=== PATIENT | female | born 1965 | race Caucasian/White ===

== ENCOUNTER 2016-07-20 11:56 | Emergency (ER) | payer OTHER ==
--- NOTE | 2016-07-20 14:42 | ED ORDER SUMMARY ---
..... Patient: GABE PEARSON OrderSheet [facility] VisitID: [id number] [address] [place] [address] 50y, F Registration Date/Time: 07/20/2016 ORDER SHEET Weight: 136.0 kg (stated) Allergies: Penicillin, OxyContin, Ibuprofen, morphine, Tetanus Toxoids GENERAL ORDERS: Rapid Influenza Screen (Nasal Pharyngeal) (nasal pharyngeal) Urgent (12:25 07/20/2016 MWinterer R.N. per protocol) (Ack 12:29 LNations ER Tech1) (12:31 MWinterer R.N.) Chest 2V Urgent (13:49 07/20/2016 Ilene HOWARD) (Ack 13:52 LNations ER Tech1) (14:14 MWinterer R.N.) MEDICATION ORDERS: Albuterol Neb Tx 2.5 mg (NOW) (13:50 07/20/2016 Ilene HOWARD) (Ack 14:03 MWinterer R.N.) (14:22 MWinterer R.N.) Prednisone PO 60 mg (NOW) (13:57 07/20/2016 Ilene HOWARD) (Ack 13:59 MWinterer R.N.) (14:03 MWinterer R.N.) IV FLUIDS: Solu-MEDROL IV 125 mg (NOW) (13:50 07/20/2016 Ilene HOWARD) (Ack 13:56 MWinterer R.N.) (Cancelled: Other13:57 Ilene HOWARD) ORDER SHEET NOTES: [Electronically signed by Naila Mariee R.N. (22:34 07/20/2016)] [Electronically signed by Norma Juares MD (13:38 07/22/2016)] [Electronically locked/signed by Naila Mariee R.N. (22:34 07/20/2016)]
--- NOTE | 2016-07-20 14:42 | ED NURSING NOTES ---
Clinical Report - Nurses [facility] [address] [place] [address] 07/20/2016 11:59 Patient: HERMILA PEARSON TRIAGE Acuity: LEVEL 3. Chief Complaint: COUGH and SORE THROAT and (SOB). Alert. No acute distress. SEPSIS SCREEN: Sepsis Screen. Negative (no infection suspected/documented). --12:22 Naila Mariee R.N. 12:16 07/20/16. BP: 139/71. HR: 94. RR: 20. O2 saturation: 97% on room air. Temp: 98.8 F (oral). --12:22 Naila Mariee R.N. Weight: 136 kg stated. Height/Length: 66 inches Per Patient. BMI: 48.4. --12:17 Naila Mariee R.N. Medications Flonase Nasal. --12:19 Naila Mariee R.N. Medication/allergy information source: the patient. --12:22 Naila Mariee R.N. Allergies Penicillin. --12:19 Naila Mariee R.N. OxyContin. --12:19 Naila Mariee R.N. Ibuprofen. --12:19 Naila Mariee R.N. morphine. --12:20 Naila Mariee R.N. Tetanus Toxoids. --12:20 Naila Mariee R.N. History Arrived by private vehicle. Historian: patient. Accompanied by spouse. Onset. (3 days ago). She has had chest congestion. 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 PAST MEDICAL HX: The patient has had a hysterectomy. SOCIAL HX: Current every day heavy tobacco smoker- 1 pack per day. No alcohol use or drug use. FALL RISK ASSESSMENT: Fall risk assessment completed. No fall risk identified. NUTRITIONAL RISK ASSESSMENT: The nutritional risk assessment revealed no deficiencies. FUNCTIONAL ASSESSMENT: Functional assessment: no impairments noted. LEARNING NEEDS ASSESSMENT: The learning needs assessment revealed no barriers. SKIN INTEGRITY ASSESSMENT: Skin integrity risk assessment completed. No skin integrity risk identified. --12: Naila Mariee R.N. ADDITIONAL SURGERIES: Bladder Suspension. Hysterectomy. Knee Surgery. --12: Naila Mariee R.N. Assessment GENERAL / NEURO / PSYCH: Alert. Oriented X 4. Appears in no acute distress. Marguerite Coma Scale: 15- eyes open spontaneously (4); best verbal response- oriented x 4 (5); best motor response- obeys commands (6). Patient appears calm and cooperative. RESPIRATORY: Respirations not labored. CVS: Capillary refill less than 2 seconds. GI / : Abdomen soft and nontender. SKIN: Mucous membranes are pink. Skin is warm and dry. --12: Naila Mariee R.N. Interventions ID band on patient. To treatment room. --12: Naila Mariee R.N. PHYSICAL ASSESSMENT 12:07/20/16. Ambulatory to room. GENERAL / NEURO / PSYCH: Alert. Oriented X 4. Appears in no acute distress. HEENT: Pupils equal, round and reactive to light. Runny nose. Hoarse voice. Mucous membranes are pink. RESPIRATORY: Nonproductive cough. CVS: Capillary refill less than 2 seconds. SKIN: Skin is warm and dry. Normal skin turgor. --12: Naila Mariee R.N. NURSING PROGRESS NOTES 12:07/20/16. Patient gowned. Reassurance given. Two patient identifiers checked. Call light placed in reach. Side rails up x 1. Bed placed in lowest position. Brakes of bed on. Patient ready for evaluation- chart flagged and ED physician notified. --12: Naila Mariee R.N. 12:07/20/16. Checked patient name and birthdate: patient confirmed. Flu swab obtained by RN via nasal swab. Labeled in the presence of the patient and sent to lab. --12: Naila Mariee R.N. 14:07/20/2016 Prednisone PO 60 mg given. Allergies verified and confirmed 5 rights. --14: Naila Mariee R.N. 14:07/20/16. BP: 142/59. HR: 88. RR: 20. O2 saturation: 92% on room air. --14: Naila Mariee R.N. 14:22 07/20/2016 Albuterol Neb TX 2.5 mg given. Given by the respiratory therapist. Allergies verified and confirmed 5 rights. --14:22 Naila Mariee R.N. DISPOSITION / DISCHARGE 22:12 07/20/16. ( Called in prescription to [facility] (Levaquin 500 mg PO daily x 5 day #5) per Norma Juares for pneumonia. Hermila verbalizes indications and importance of finishing all prescribed antibiotics. She has no questions and voices no concerns at this time.). --22:12 Nick Alcaraz R.N. Departure time: 14:50 Jul 20 2016. Condition at departure: improved and stable. No learning barriers present. Discharge instructions provided and reviewed with the patient. Reviewed medication(s) side effects, precautions, dosing and course information. Prescription(s) given to the patient. Patient verbalized understanding. Written instructions provided in [place]. The patient was discharged by the physician. She was discharged home and accompanied by spouse. She left the Emergency Department ambulatory and via private vehicle. Spouse driving. --22:34 Naila Mariee R.N. 22:32 07/20/16. BP: 142/59. HR: 90. RR: 20. O2 saturation: 95% on room air. Temp: 98.8 F (oral). Pain level now: 510. --22:34 Naila Mariee R.N. Locked/Released at 07/20/2016 22:34 by Naila Mariee R.N.
--- NOTE | 2016-07-20 14:42 | ED CLINICAL REPORT ---
Clinical Report - Physicians/Mid Levels [facility] [address] [place] [address] 07/20/2016 11:59 Patient: GABE PEARSON Time Seen: 12:42. Arrived- By private vehicle. Historian- patient. HISTORY OF PRESENT ILLNESS Chief Complaint: COUGH and SORE THROAT. This started about 3 days ago and is still present. The illness is described as moderate. The patient has had a cough, mild difficulty breathing, a sore throat, nasal congestion and chills. She has had muscle aches. She has had scant amounts of thick, white sputum. No chest discomfort or pain, fever, hoarseness or sinus pressure. No sinus drainage or ear pain. Additional history - The patient has had contact with a sick individual. Similar symptoms previously: Occasionally. Recent medical care: Not recently seen/assessed. REVIEW OF SYSTEMS No headache, eye discomfort, nausea, vomiting or diarrhea. No abdominal pain, hay fever, pedal edema, calf pain or difficulty with urination. No skin rash, enlarged lymph nodes or joint pain. All systems otherwise negative, except as recorded above. PAST HISTORY Problems: no known problems. Additional Surgeries: Bladder Suspension. Hysterectomy. Knee Surgery. Medications: Flonase Nasal. Allergies: Ibuprofen. morphine. OxyContin. Penicillin. Tetanus Toxoids. SOCIAL HISTORY Smoker- current status unknown. No alcohol use or drug use. ADDITIONAL NOTES The nursing notes have been reviewed. PHYSICAL EXAM Vital Signs: 07/20/2016 12:16 BP: 139/71. HR: 94. RR: 20. O2 saturation: 97%. Temp: 98.8 F. Appearance: Alert. No acute distress. Eyes: Pupils equal, round and reactive to light. Eyes normal inspection. ENT: Nose normal. Neck: Normal inspection. Neck supple. CVS: Normal heart rate and rhythm. Heart sounds normal. Pulses normal. Respiratory: No respiratory distress. Expiratory mild bilateral wheezes diffusely. No accessory muscle use or decreased breath sounds. Abdomen: Soft and nontender. Back: Normal inspection. No CVA tenderness. Skin: Skin warm and dry. Normal skin color. No rash. Normal skin turgor. Extremities: Extremities exhibit normal ROM. No lower extremity edema. Neuro: Oriented X 3. No motor deficit. No sensory deficit. LABS, X-RAYS, AND EKG Chest X-ray: No acute disease. Small infiltrate in the right lung base (possible). Normal lung markings present. Normal heart size. Mediastinum normal. Great vessels normal. Soft tissues normal. No fracture. No bony lesion present. Views: PA and lateral. Technique: good. The X-rays were independently viewed by me, interpreted by the radiologist and contemporaneously by me and discussed with the radiologist. Prior films were not available for comparison. Laboratory Tests: Rapid Influenza Screen: (DYLAN: 07/20/2016 12:25) ( MsgRcvd 07/20/2016 12:45) Final results SPECIMEN DESCRIPTION: NASAL PHARYNGEAL Test Result Flag Units (Reference) RAPID INFLUENZA SCREEN DATE: 07/20/16 INFLUENZA A: NEGATIVE SCREEN FOR INFLUENZA A INFLUENZA B: NEGATIVE SCREEN FOR INFLUENZA B . Pulse Oximetry: 07/20/2016 12:16 O2 saturation: 97%. (FIO2 - room air). Interpretation: normal. PROGRESS AND PROCEDURES Course of Care: Pt was worked up with a CXR and influenza test, and given a duoneb and prednisone. Influenza was negative, and I felt the CXR was also negative. However, the radiologist did call me after pt had been discharged, and stated there may be a tiny RLL infiltrate. I did prepare a prescription for abx, and have nursing staff call the pt at home to let her know. Patient counseled in person regarding the patient's stable condition, test results, diagnosis and need for follow-up. Concerns were addressed. Old medical records reviewed. Disposition: Discharged. Condition: stable. CLINICAL IMPRESSION Acute bronchospasm (mild). Substance dependence problems: dependence on nicotine. Acute viral (presumed) upper respiratory infection. INSTRUCTIONS Drink plenty of fluids. Do not smoke. Seek medical help to quit smoking. (Your influenza test and chest x-ray were negative. Please take the steroids and inhaler as directed, until you are feeling better.). Warnings: GENERAL WARNINGS: Return or contact your physician immediately if your condition worsens or changes unexpectedly, if not improving as expected, or if other problems arise. Your Current Medications: CONTINUE TAKING THE FOLLOWING MEDICATIONS: Flonase Nasal. Prescription Medications: Albuterol HFA oral inhaler: inhale 2 puffs every 4 hours as needed for wheezing, difficulty breathing or shortness of breath. Dispense one (1) unit. No refill. Prednisone 20 mg: take 3 orally every day for 4 days. Dispense sufficient quantity. No refills. Follow-up: Follow up with your doctor in three days if not better. Understanding of the discharge instructions verbalized by patient. (Electronically signed by Norma Juares MD 07/22/2016 13:38)
--- NOTE | 2016-07-20 14:42 | ED ORDER SUMMARY ---
..... Patient: GABE PEARSON OrderSheet [facility] VisitID: [id number] [address] [place] [address] 50y, F Registration Date/Time: 07/20/2016 ORDER SHEET Weight: 136.0 kg (stated) Allergies: Penicillin, OxyContin, Ibuprofen, morphine, Tetanus Toxoids GENERAL ORDERS: Rapid Influenza Screen (Nasal Pharyngeal) (nasal pharyngeal) Urgent (12:25 07/20/2016 MWinterer R.N. per protocol) (Ack 12:29 LNations ER Tech1) (12:31 MWinterer R.N.) Chest 2V Urgent (13:49 07/20/2016 Ilene HOWARD) (Ack 13:52 LNations ER Tech1) (14:14 MWinterer R.N.) MEDICATION ORDERS: Albuterol Neb Tx 2.5 mg (NOW) (13:50 07/20/2016 Ilene HOWARD) (Ack 14:03 MWinterer R.N.) (14:22 MWinterer R.N.) Prednisone PO 60 mg (NOW) (13:57 07/20/2016 Ilene HOWARD) (Ack 13:59 MWinterer R.N.) (14:03 MWinterer R.N.) IV FLUIDS: Solu-MEDROL IV 125 mg (NOW) (13:50 07/20/2016 Ilene HOWARD) (Ack 13:56 MWinterer R.N.) (Cancelled: Other13:57 Ilene HOWARD) ORDER SHEET NOTES: [Electronically signed by Naila Mariee R.N. (22:34 07/20/2016)] [Electronically signed by Norma Juares MD (13:38 07/22/2016)] [Electronically locked/signed by Naila Mariee R.N. (22:34 07/20/2016)]
--- NOTE | 2016-07-20 17:22 | DIAGNOSTIC IMAGING REPORT ---
PROCEDURE: XR CHEST 2 VIEW INDICATION: SHORTNESS OF BREATH TECHNIQUE: PA and lateral views. COMPARISON: None. FINDINGS: Findings suggest mild parenchymal changes at the right lung base. Lungs are otherwise clear. Heart and mediastinum are normal. Thorax is normal. IMPRESSION: 1. Findings suggest mild parenchymal changes at the right lung base. Consider pneumonia (e.g., Mycoplasma, bacterial, aspiration). 2. Findings discussed with Dr. Norma Juares.
--- NOTE | 2016-07-22 13:38 | ED MED RECONCILIATION SUMMARY ---
Patient: GABE PEARSON Medication Reconciliation Report [facility] VisitID: [id number] [address] [place] [address] 50y, F Registration Date/Time: 07/20/2016 Weight: 136.0 kg Height/Length: 66 in. BMI: 48.4 ALLERGIES: Ibuprofen, morphine, OxyContin, Penicillin, Tetanus Toxoids The patient's Home Medications are listed below: CONTINUE TAKING THE FOLLOWING MEDICATIONS: Flonase Nasal The source(s) of the original Home Medication information: patient The following Medications were given to the patient in the Emergency Department: Prednisone [PO] PO 60 mg, administered: 07/20/2016 2:03:00 PM Albuterol [Neb Tx] Neb TX 2.5 mg, administered: 07/20/2016 2:22:00 PM The following Medications were prescribed to the patient: Albuterol HFA oral inhaler: inhale 2 puffs every 4 hours as needed for wheezing, difficulty breathing or shortness of breath. Dispense one (1) unit. No refill. -- Norma Juares MD Prednisone 20 mg: take 3 orally every day for 4 days. Dispense sufficient quantity. No refills. -- Norma Juares MD
--- NOTE | 2016-07-22 13:38 | ED MAR SUMMARY ---
..... Medication Administration Record [facility] [address] [place] [address] Patient: GABE PEARSON Visit ID: [id number] 50y, F Weight: 136.0 kg Height/Length: 66 in BMI: 48.4 ALLERGIES: Tetanus Toxoids, morphine, Ibuprofen, OxyContin, Penicillin Given 14:03 07/20/2016 Naila Mariee R.N. Medication Administered: PREDNISONE [PO], Dose: 60 mg PO. Medication Ordered: Prednisone PO 60 mg (NOW). Given 14:22 07/20/2016 Naila Mariee RNelson Medication Administered: ALBUTEROL [NEB TX], Dose: 2.5 mg Neb TX. Medication Ordered: Albuterol Neb Tx 2.5 mg (NOW).
--- NOTE | 2016-07-22 13:38 | ED DISCHARGE INSTRUCTIONS ---
Patient: GABE PEARSON General Instructions [facility] VisitID: [id number] [place] [address] 50y, F Registration Date/Time: 07/20/2016 Acute bronchospasm (mild). Substance dependence problems: dependence on nicotine. Acute viral (presumed) upper respiratory infection. INSTRUCTIONS Drink plenty of fluids. Do not smoke. Seek medical help to quit smoking. (Your influenza test and chest x-ray were negative. Please take the steroids and inhaler as directed, until you are feeling better.). Warnings: GENERAL WARNINGS: Return or contact your physician immediately if your condition worsens or changes unexpectedly, if not improving as expected, or if other problems arise. Your Current Medications: CONTINUE TAKING THE FOLLOWING MEDICATIONS: Flonase Nasal. Prescription Medications: Albuterol HFA oral inhaler: inhale 2 puffs every 4 hours as needed for wheezing, difficulty breathing or shortness of breath. Dispense one (1) unit. No refill. Prednisone 20 mg: take 3 orally every day for 4 days. Dispense sufficient quantity. No refills. Follow-up: Follow up with your doctor in three days if not better. Understanding of the discharge instructions verbalized by patient. ADDITIONAL INFORMATION Viral Respiratory Illness [Adult] You have an Upper Respiratory Illness (URI) caused by a virus. This illness is contagious during the first few days. It is spread through the air by coughing and sneezing or by direct contact (touching the sick person and then touching your own eyes, nose or mouth). Most viral illnesses go away within 7-10 days with rest and simple home remedies. Sometimes, the illness may last for several weeks. Antibiotics will not kill a virus and are generally not prescribed for this condition. Home Care: 1) If symptoms are severe, rest at home for the first 2-3 days. When you resume activity, don't let yourself get too tired. 2) Avoid being exposed to cigarette smoke (yours or others). 3) Tylenol (acetaminophen) or ibuprofen (Advil, Motrin) will help fever, muscle aching and headache. (Persons under 18 with fever should not take aspirin since this may cause liver damage.) 4) Your appetite may be poor, so a light diet is fine. Avoid dehydration by drinking 6-8 glasses of fluids per day (water, soft drinks, juices, tea, soup). Extra fluids will help loosen secretions in the nose and lungs. 5) Mlvi-iql-bcwfser cold medicines will not shorten the length of time youre sick, but they may be helpful for the following symptoms: cough (Robitussin DM); sore throat (Chloraseptic lozenges or spray); nasal and sinus congestion (Actifed, Sudafed, Chlortrimeton). Follow Up with your doctor or as advised if you dont improve over the next week. Get Prompt Medical Attention if any of the following occur: -- Cough with lots of colored sputum (mucus) or blood in your sputum -- Chest pain, shortness of breath, wheezing or have trouble breathing -- Severe headache; face, neck or ear pain -- Fever over 100.4 F (38.0 C) for more than three days -- You cant swallow due to throat pain How To Quit Smoking Smoking is one of the hardest habits to break. About half of all those who have ever smoked have been able to quit, and most of those (about 70%) who still smoke want to quit. Here are some of the best ways to stop smoking. Keep Trying: It takes most smokers about 8 tries before they are finally able to fully quit. So, the more often you try and fail, the better your chance of quitting the next time! So, don't give up! Go Cold [place]: Most ex-smokers quit cold turkey. Trying to cut back gradually doesn't seem to work as well, perhaps because it continues the smoking habit. Also, it is possible to fool yourself by inhaling more while smoking fewer cigarettes. This results in the same amount of nicotine in your body! Get Support: Support programs can make an important difference, especially for the heavy smoker. These groups offer lectures, methods to change your behavior and peer support. Call the free national Quitline for more information. 415-YYIU-VXZ (392-652-5467). Low-cost or free programs are offered by many hospitals, local chapters of the [employer] [employer] (897-551-9046) and the [employer] (199-858-7592). Support at home is important too. Non-smokers can help by offering praise and encouragement. If the smoker fails to quit, encourage them to try again! [place] Medicines: For those who can't quit on their own, Nicotine Replacement Therapy (NRT) may make quitting much easier. Certain aids such as the nicotine patch, gum and lozenge are available without a prescription. However, it is best to use these under the guidance of your doctor. The skin patch provides a steady supply of nicotine to the body. Nicotine gum and lozenge gives temporary bursts of low levels of nicotine. Both methods take the edge off the craving for cigarettes. WARNING: If you feel symptoms of nicotine overdose, such as nausea, vomiting, dizziness, weakness, or fast heartbeat, stop using these and see your doctor. Prescription Medicines: After evaluating your smoking patterns and prior attempts at quitting, your doctor may offer a prescription medicine such as bupropion (Zyban, Wellbutrin), varenicline (Chantix, Champix), a niocotine inhaler or nasal spray. Each has its unique advantage and side effects which your doctor can review with you. Health Benefits Of Quitting: The benefits of quitting start right away and keep improving the longer you go without smokin minutes: blood pressure and pulse return to normal 8 hours: oxygen levels return to normal 2 days: ability to smell and taste begins to improve as damaged nerves start to regrow 2-3 weeks: circulation and lung function improves 1-9 months: decreased cough, congestion and shortness of breath; less tired 1 year: risk of heart attack decreases by half 5 years: risk of lung cancer decreases by half; risk of stroke becomes the same as a non-smoker For information about how to quit smoking, visit the following links: National Cancer [place] , Clearing the Air, Quit Smoking Today - an online booklet. http://www.smokefree.gov/pubs/clearing_the_air.pdf Smokefree.gov http://smokefree.gov/ QuitNet http://www.quitnet.com/ You have been given the following additional information: Uri, Viral, No Abx (Adult) Smoking Cessation (Electronically signed by Norma Juares MD 07/22/2016 13:38)
--- NOTE | 2016-07-22 13:38 | ED MED RECONCILIATION SUMMARY ---
Patient: GABE PEARSON Medication Reconciliation Report VisitID: [id number] [address] [place] [address] 50y, F Registration Date/Time: 07/20/2016 Weight: 136.0 kg Height/Length: 66 in. BMI: 48.4 ALLERGIES: Ibuprofen, morphine, OxyContin, Penicillin, Tetanus Toxoids The patient's Home Medications are listed below: CONTINUE TAKING THE FOLLOWING MEDICATIONS: Flonase Nasal The source(s) of the original Home Medication information: patient The following Medications were given to the patient in the Emergency Department: Prednisone [PO] PO 60 mg, administered: 07/20/2016 2:03:00 PM Albuterol [Neb Tx] Neb TX 2.5 mg, administered: 07/20/2016 2:22:00 PM The following Medications were prescribed to the patient: Albuterol HFA oral inhaler: inhale 2 puffs every 4 hours as needed for wheezing, difficulty breathing or shortness of breath. Dispense one (1) unit. No refill. -- Norma Juares MD Prednisone 20 mg: take 3 orally every day for 4 days. Dispense sufficient quantity. No refills. -- Norma Juares MD
--- NOTE | 2016-07-22 13:38 | ED MAR SUMMARY ---
..... Medication Administration Record [facility] [address] [place] [address] Patient: GABE PEARSON Visit ID: [id number] 50y, F Weight: 136.0 kg Height/Length: 66 in BMI: 48.4 ALLERGIES: Tetanus Toxoids, morphine, Ibuprofen, OxyContin, Penicillin Given 14:03 07/20/2016 Naila Mariee R.N. Medication Administered: PREDNISONE [PO], Dose: 60 mg PO. Medication Ordered: Prednisone PO 60 mg (NOW). Given 14:22 07/20/2016 Naila Mariee RNelson Medication Administered: ALBUTEROL [NEB TX], Dose: 2.5 mg Neb TX. Medication Ordered: Albuterol Neb Tx 2.5 mg (NOW).
--- NOTE | 2016-07-22 13:38 | ED DISCHARGE INSTRUCTIONS ---
Patient: GABE PEARSON General Instructions [facility] VisitID: [id number] [place] [address] 50y, F Registration Date/Time: 07/20/2016 Acute bronchospasm (mild). Substance dependence problems: dependence on nicotine. Acute viral (presumed) upper respiratory infection. INSTRUCTIONS Drink plenty of fluids. Do not smoke. Seek medical help to quit smoking. (Your influenza test and chest x-ray were negative. Please take the steroids and inhaler as directed, until you are feeling better.). Warnings: GENERAL WARNINGS: Return or contact your physician immediately if your condition worsens or changes unexpectedly, if not improving as expected, or if other problems arise. Your Current Medications: CONTINUE TAKING THE FOLLOWING MEDICATIONS: Flonase Nasal. Prescription Medications: Albuterol HFA oral inhaler: inhale 2 puffs every 4 hours as needed for wheezing, difficulty breathing or shortness of breath. Dispense one (1) unit. No refill. Prednisone 20 mg: take 3 orally every day for 4 days. Dispense sufficient quantity. No refills. Follow-up: Follow up with your doctor in three days if not better. Understanding of the discharge instructions verbalized by patient. ADDITIONAL INFORMATION Viral Respiratory Illness [Adult] You have an Upper Respiratory Illness (URI) caused by a virus. This illness is contagious during the first few days. It is spread through the air by coughing and sneezing or by direct contact (touching the sick person and then touching your own eyes, nose or mouth). Most viral illnesses go away within 7-10 days with rest and simple home remedies. Sometimes, the illness may last for several weeks. Antibiotics will not kill a virus and are generally not prescribed for this condition. Home Care: 1) If symptoms are severe, rest at home for the first 2-3 days. When you resume activity, don't let yourself get too tired. 2) Avoid being exposed to cigarette smoke (yours or others). 3) Tylenol (acetaminophen) or ibuprofen (Advil, Motrin) will help fever, muscle aching and headache. (Persons under 18 with fever should not take aspirin since this may cause liver damage.) 4) Your appetite may be poor, so a light diet is fine. Avoid dehydration by drinking 6-8 glasses of fluids per day (water, soft drinks, juices, tea, soup). Extra fluids will help loosen secretions in the nose and lungs. 5) Pcno-veu-jiwtxeh cold medicines will not shorten the length of time youre sick, but they may be helpful for the following symptoms: cough (Robitussin DM); sore throat (Chloraseptic lozenges or spray); nasal and sinus congestion (Actifed, Sudafed, Chlortrimeton). Follow Up with your doctor or as advised if you dont improve over the next week. Get Prompt Medical Attention if any of the following occur: -- Cough with lots of colored sputum (mucus) or blood in your sputum -- Chest pain, shortness of breath, wheezing or have trouble breathing -- Severe headache; face, neck or ear pain -- Fever over 100.4 F (38.0 C) for more than three days -- You cant swallow due to throat pain How To Quit Smoking Smoking is one of the hardest habits to break. About half of all those who have ever smoked have been able to quit, and most of those (about 70%) who still smoke want to quit. Here are some of the best ways to stop smoking. Keep Trying: It takes most smokers about 8 tries before they are finally able to fully quit. So, the more often you try and fail, the better your chance of quitting the next time! So, don't give up! Go Cold [place]: Most ex-smokers quit cold turkey. Trying to cut back gradually doesn't seem to work as well, perhaps because it continues the smoking habit. Also, it is possible to fool yourself by inhaling more while smoking fewer cigarettes. This results in the same amount of nicotine in your body! Get Support: Support programs can make an important difference, especially for the heavy smoker. These groups offer lectures, methods to change your behavior and peer support. Call the free national Quitline for more information. 741-VBKC-QBD (239-723-4810). Low-cost or free programs are offered by many hospitals, local chapters of the [place] [employer] (505-793-2931) and the [employer] (996-857-2694). Support at home is important too. Non-smokers can help by offering praise and encouragement. If the smoker fails to quit, encourage them to try again! Wowb-Ulq-Qxnqoua Medicines: For those who can't quit on their own, Nicotine Replacement Therapy (NRT) may make quitting much easier. Certain aids such as the nicotine patch, gum and lozenge are available without a prescription. However, it is best to use these under the guidance of your doctor. The skin patch provides a steady supply of nicotine to the body. Nicotine gum and lozenge gives temporary bursts of low levels of nicotine. Both methods take the edge off the craving for cigarettes. WARNING: If you feel symptoms of nicotine overdose, such as nausea, vomiting, dizziness, weakness, or fast heartbeat, stop using these and see your doctor. Prescription Medicines: After evaluating your smoking patterns and prior attempts at quitting, your doctor may offer a prescription medicine such as bupropion (Zyban, Wellbutrin), varenicline (Chantix, Champix), a niocotine inhaler or nasal spray. Each has its unique advantage and side effects which your doctor can review with you. Health Benefits Of Quitting: The benefits of quitting start right away and keep improving the longer you go without smokin minutes: blood pressure and pulse return to normal 8 hours: oxygen levels return to normal 2 days: ability to smell and taste begins to improve as damaged nerves start to regrow 2-3 weeks: circulation and lung function improves 1-9 months: decreased cough, congestion and shortness of breath; less tired 1 year: risk of heart attack decreases by half 5 years: risk of lung cancer decreases by half; risk of stroke becomes the same as a non-smoker For information about how to quit smoking, visit the following links: [employer] [place] , Clearing the Air, Quit Smoking Today - an online booklet. http://www.smokefree.gov/pubs/clearing_the_air.pdf Smokefree.gov http://smokefree.gov/ QuitNet http://www.quitnet.com/ You have been given the following additional information: Uri, Viral, No Abx (Adult) Smoking Cessation (Electronically signed by Norma Juares MD 07/22/2016 13:38)
== END 2016-07-20 14:50 | disposition home or self-care (01) ==
LOC: ED SRH 11:56
DX: J98.01 Acute bronchospasm (principal); J06.9 Acute upper respiratory infection, unspecified; F17.210 Nicotine dependence, cigarettes, uncomplicated; Z88.0 Allergy status to penicillin; Z88.5 Allergy status to narcotic agent
CPT/HCPCS: 91400